=== PATIENT | male | born 1990 | race Two or more races ===

== ENCOUNTER 2017-11-23 10:47 | Emergency (ER) | payer SELFPAY ==
[2017-11-23 10:53] VITALS: BP 135/84; PULSE 85; RESP 18; TEMP 98.1; BMI 23.8
--- NOTE | 2017-11-23 11:00 | ED PDOC ---
Upper Extremity Pain/Injury Time Seen by Provider: 11/23/17 10:54 History Per: Patient Onset/Duration Of Symptoms: Days (3) Current Symptoms Are (Timing): Intermittent Episodes Quality: Burning Severity: Mild Additional Complaint(s): Right shoulder pain x 3 days. Burning type pain. Worse when sleeping. No injury. Denies weakness or parasthesias. Past Medical History Vital Signs: Last Vital Signs Temp 98.1 F 11/23/17 10:52 Pulse 85 11/23/17 10:52 Resp 18 11/23/17 10:52 BP 135/84 11/23/17 10:52 Pulse Ox 98 11/23/17 10:52 - Medical History PMH: No Chronic Diseases - Family History Family History: States: Unknown Family Hx - Home Medications Home Medications: Ambulatory Orders Medication Instructions Recorded Naproxen [Naprosyn] 500 mg PO Q12H #20 tab 11/23/17 - Allergies Allergies/Adverse Reactions: Allergies Allergy/AdvReac Type Severity Reaction Status Date / Time Unobtainable Allergy Verified 11/23/17 10:58 Review of Systems Musculoskeletal: Positive for: Shoulder Pain Neurological: Negative for: Weakness, Numbness Physical Exam - Physical Exam Appears: Positive for: Non-toxic, No Acute Distress Skin: Positive for: Normal Color, Warm, DRY Extremity: Positive for: Normal ROM, Tenderness (anterior shoulder). Negative for: Deformity, Swelling Neurologic/Psych: Positive for: Alert, Oriented. Negative for: Motor/Sensory Deficits - ECG O2 Sat by Pulse Oximetry: 98 Disposition - Clinical Impression Clinical Impression: Shoulder pain - Patient ED Disposition Is Patient to be Admitted: No Counseled Patient/Family Regarding: Studies Performed, Diagnosis, Need For Followup, Rx Given - Disposition Referrals: [facility] [Outside] Disposition: Routine/Home Disposition Time: 11:12 Condition: FAIR Prescriptions: Naproxen [Naprosyn] 500 mg PO Q12H #20 tab Instructions: Shoulder Sprain
[2017-11-23 11:25] VITALS: O2SAT 100
--- NOTE | 2017-11-23 11:39 | RAD ---
Date of service: 11/23/2017 PROCEDURE: Radiographs of the Right Shoulder HISTORY: pain COMPARISON: No prior. FINDINGS: BONES: No acute fracture or destructive bony lesion identified. JOINTS: Normal. Glenohumeral and acromioclavicular joints preserved. No osteoarthritis. SOFT TISSUES: Normal. OTHER FINDINGS: None. IMPRESSION: Normal radiographs of the right shoulder.
== END 2017-11-23 12:00 | disposition home or self-care (01) ==
LOC: H.ER 10:47
DX: M25.511 Pain in right shoulder (principal)

== ENCOUNTER 2018-02-12 14:39 | Emergency (ER) | payer OTHER ==
[2018-02-12 14:39] VITALS: BMI 23.8
[2018-02-12 15:08] VITALS: BP 143/75; PULSE 92; RESP 18; TEMP 98.1; O2SAT 100
[2018-02-12] MEDS ORDERED: Tdap Vaccine 0.5 ml Vial (10-64 yrs) IM ONE ×2 (15:17→15:34)
[2018-02-12] MEDS ORDERED: Amoxicillin-Clav 875-125 mg Tab PO STA (15:17)
--- NOTE | 2018-02-12 15:22 | ED PDOC ---
HPI: Skin/Bite Injury Time Seen by Provider: 02/12/18 15:09 Chief Complaint (Nursing): Bite Chief Complaint (Provider): Bite History Per: Patient History/Exam Limitations: no limitations Onset/Duration Of Symptoms: Days (2x) Current Symptoms Are (Timing): Still Present Location Of Injury: Right: Hand Quality Of Symptoms: Painful Severity: Moderate Additional Complaint(s): 27 year old male with no pertinent past medical history presents to the ED for an evaluation of a cat bite that occurred last night. Patient states that his grandmother's cat bit him. Patient states that his grandmother has been taking care of the cat for 9-10x months, but the the cat has not been vaccinated, and goes in and out of the house. Patient contacted his mother while in ED, mother states that the cat is still in the house. Patient complaints of pain and swelling to right hand. Tetanus is not up to date. PMD: None provided. - Animal Bite Description Of The Animal: Family Pet (grandmother's cat) Animal's Immunization Status: Other (not immunized) Animal Control Notified: Yes Past Medical History Reviewed: Historical Data, Nursing Documentation, Vital Signs Vital Signs: Last Vital Signs Temp 98.1 F 02/12/18 15:06 Pulse 92 H 02/12/18 15:06 Resp 18 02/12/18 15:06 BP 143/75 02/12/18 15:06 Pulse Ox 100 02/12/18 15:06 JOAQUINA report viewed?: Yes - Medical History PMH: Asthma - Surgical History Surgical History: No Surg Hx - Family History Family History: States: No Known Family Hx - Social History Alcohol: None Drugs: Denies - Home Medications Home Medications: Ambulatory Orders Medication Instructions Recorded Naproxen [Naprosyn] 500 mg PO Q12H #20 tab 11/23/17 Amoxicillin/Clavulanate [Augmentin 1 tab PO BID #19 tab 02/12/18 875 MG-125 MG] - Allergies Allergies/Adverse Reactions: Allergies Allergy/AdvReac Type Severity Reaction Status Date / Time No Known Allergies Allergy Verified 02/12/18 15:08 Review of Systems ROS Statement: Except As Marked, All Systems Reviewed And Found Negative Musculoskeletal: Positive for: Hand Pain (pain and swelling to right hand) Physical Exam - Reviewed Nursing Documentation Reviewed: Yes Vital Signs Reviewed: Yes - Physical Exam Appears: Positive for: Well, Non-toxic, No Acute Distress Head Exam: Positive for: ATRAUMATIC, NORMOCEPHALIC Pulses-Radial (L): 2+ Pulses-Radial (R): 2+ Extremity: Positive for: Normal ROM (Patient is able to actively move all digits of the right hand.), Swelling (minimal swelling to dorsum of the right hand, with superficial puncture wounds, and to the thenar surface of right hand. (-) active bleeding, (-) lacerations, (-) erythema, (-) discharge.) Neurologic/Psych: Positive for: Alert, Oriented (3x) - ECG O2 Sat by Pulse Oximetry: 100 (RA) Pulse Ox Interpretation: Normal - Radiology X-Ray: Interpreted by Me (R Hand x-ray) X-Ray Interpretation: No Acute Disease - Progress ED Course And Treament: Wound irrigated heavily with NS. DSD applied. Medical Decision Making Medical Decision Makin:09 Initial impression: 27 year old male with a cat bite. Initial plan: -- XRay hand right 3 views -- adacel (10-64 yrs) 0.5 ml IM -- augmentin 875 mg - 125 mg tab 1 tab PO -- reevaluation Patient advised to call mother to make sure that the cat does not leave the h ouse. Patient gets in touch with his mother who states that the cat is inside the house. Pt. told mother to keep cat inside the house as animal control will be informed. Advised to return to ED immediately if redness or discharge develops or swelling worsens. Given wound care instructions. Verbalized understanding of correct care. Scribe Attestation: Documented by Suellen Mendoza, acting as a scribe for Chele Da Silva Provider Scribe Attestation: All medical record entries made by the Scribe were at my direction and personally dictated by me. I have reviewed the chart and agree that the record accurately reflects my personal performance of the history, physical exam, medical decision making, and the department course for this patient. I have also personally directed, reviewed, and agree with the discharge instructions and disposition. Disposition - Clinical Impression Clinical Impression: Cat bite - Patient ED Disposition Is Patient to be Admitted: No - Disposition Referrals: [facility] [Outside] Disposition: Routine/Home Disposition Time: 15:41 Condition: STABLE Additional Instructions: FOLLOW UP WITH ED IN 48 HOURS FOR WOUND CHECK RETURN TO ED IMMEDIATELY IF SYMPTOMS WORSEN TERESA ESTRADA, thank you for letting us take care of you today. Your provider was Burke Shaw MD and you were treated for CAT BITE. The emergency medical care you received today was directed at your acute symptoms. If you were prescribed any medication, please fill it and take as directed. It may take several days for your symptoms to resolve. Return to the Emergency Department if your symptoms worsen, do not improve, or if you have any other problems. Please contact your doctor or call one of the physicians/clinics you have been referred to that are listed on the Patient Visit Information form that is included in your discharge packet. Bring any paperwork you were given at discharge with you along with any medications you are taking to your follow up visit. Our treatment cannot replace ongoing medical care by a primary care provider outside of the emergency department. Thank you for allowing the [facility] team to be part of your care today. If you had an X-Ray or CT scan: A Radiologist will review the ED reading if any change in treatment is needed we will contact you. If you had a blood, urine, or wound culture: It will take several days for the results, if any change in treatment is needed we will contact you. If you had an STI test: It will take 48 hours for the results. Please call after 1 week if you have not heard back. Prescriptions: Amoxicillin/Clavulanate [Augmentin 875 MG-125 MG] 1 tab PO BID #19 tab Instructions: Animal Bites (DC) Forms: [email or web address] (Lao), [facility] ED School/Work Excuse
[2018-02-12] MEDS ORDERED: Amoxicillin-Clav 875-125 mg Tab PO ONE (15:33)
--- NOTE | 2018-02-12 16:34 | RAD ---
PROCEDURE: Right Hand Radiographs. HISTORY: trauma COMPARISON: None. FINDINGS: BONES: No acute fracture or destructive bony lesion identified. JOINTS: Normal. No osteoarthritic changes. SOFT TISSUES: Normal. OTHER FINDINGS: None. IMPRESSION: Unremarkable right hand radiographs.
[2018-02-12] MEDS ORDERED: Albuterol-Ipratrop 3 mg / 0.5 (3 ml) UD ONE (18:50)
== END 2018-02-12 16:10 | disposition home or self-care (01) ==
LOC: H.ER 14:39
DX: S61.451A Open bite of right hand, initial encounter (principal); W55.01XA Bitten by cat, initial encounter; J45.909 Unspecified asthma, uncomplicated; Z23 Encounter for immunization

== ENCOUNTER 2018-03-29 09:55 | Emergency (ER) | payer OTHER ==
[2018-03-29 10:17] VITALS: BMI 23.5
[2018-03-29 10:21] VITALS: RESP 20; TEMP 97.4
[2018-03-29 10:23] VITALS: O2SAT 98
--- NOTE | 2018-03-29 10:43 | ED PDOC ---
Upper Extremity Pain/Injury Time Seen by Provider: 03/29/18 10:33 Chief Complaint (Nursing): Upper Extremity Problem/Injury Chief Complaint (Provider): Right Shoulder Pain History Per: Patient History/Exam Limitations: no limitations Onset/Duration Of Symptoms: Days (>30 days), Persistent, Worse Since (in the last few days) Current Symptoms Are (Timing): Still Present Quality: Burning, Aching Severity: Moderate Exacerbating Factor(s): Strenuous Use Of Affected Area, Movement (Pt presents to the ED for the second time in two months complaining of increasingly painful right shoulder; pt works in a strenuous activity in [employer] and has provided no rest to the injured and painful shoulder. Pt denies other medical problems, trauma, injury or the like) Past Medical History Reviewed: Historical Data, Nursing Documentation, Vital Signs Vital Signs: Last Vital Signs Temp 97.4 F L 03/29/18 10:21 Pulse 98 H 03/29/18 10:21 Resp 20 03/29/18 10:21 BP 129/78 03/29/18 10:21 Pulse Ox 98 03/29/18 10:21 - Medical History PMH: Asthma - Family History Family History: States: Unknown Family Hx - Home Medications Home Medications: Ambulatory Orders Medication Instructions Recorded Naproxen [Naprosyn] 500 mg PO Q12H #20 tab 11/23/17 Amoxicillin/Clavulanate [Augmentin 1 tab PO BID #19 tab 02/12/18 875 MG-125 MG] Diclofenac Potassium 50 mg PO BID #20 tablet 03/29/18 Methylprednisolone [Medrol Dose 4 mg PO ASDIR #21 mg 03/29/18 Pack (21 tabs)] - Allergies Allergies/Adverse Reactions: Allergies Allergy/AdvReac Type Severity Reaction Status Date / Time No Known Allergies Allergy Verified 02/12/18 15:08 Review of Systems ROS Statement: Except As Marked, All Systems Reviewed And Found Negative Musculoskeletal: Positive for: Shoulder Pain Physical Exam - Reviewed Nursing Documentation Reviewed: Yes Vital Signs Reviewed: Yes - Physical Exam Appears: Positive for: Well, Non-toxic, No Acute Distress. Negative for: Uncomfortable Head Exam: Positive for: NORMAL INSPECTION Skin: Positive for: Normal Color, Warm, Dry. Negative for: Diaphoresis, Pallor, Rash Neck: Positive for: Normal, Painless ROM, Supple. Negative for: Decreased ROM Cardiovascular/Chest: Positive for: Regular Rate, Rhythm Respiratory: Positive for: Normal Breath Sounds. Negative for: Accessory Muscle Use, Crackles, Rales, Rhonchi, Stridor, Wheezing Pulses-Carotid (L): 2+ Pulses-Carotid (R): 2+ Pulses-Radial (L): 2+ Pulses-Radial (R): 2+ Extremity: Positive for: Normal ROM (There is normal active ROM to the right shoulder; there is (-) hawking, scarf, empty can test as well as (-) shoulder impingement maneuvers), Tenderness (There is tenderness to the anterior right shoulder, lateral to the deltoid attachment), Capillary Refill (<2seconds bilaterally). Negative for: Deformity, Swelling DTR - Bicep (R): 2+ DTR - Bicep (L): 2+ DTR - Tricep (R): 2+ DTR - Tricep (L): 2+ - ECG O2 Sat by Pulse Oximetry: 98 Medical Decision Making Medical Decision Making: I- R/O separation vs tendonosis P- XR right shoulder toradol, dexameth and apap Wet read of right shoulder xray reveals no changes since previous read; there is no acute issues, no evidence of calcific tendonosis, dislocation or separation R- pt will be rx diclofenac; referrred to ortho; lsing and rest Disposition - Clinical Impression Clinical Impression: Nontraumatic shoulder pain, Shoulder pain - Patient ED Disposition Is Patient to be Admitted: No Doctor Will See Patient In The: Office Counseled Patient/Family Regarding: Diagnosis, Need For Followup, Rx Given - Disposition Referrals: [facility] [Outside] Boubacar Altman III, MD [Staff Provider] - Disposition: Routine/Home Disposition Time: 13:21 Condition: STABLE Prescriptions: Diclofenac Potassium 50 mg PO BID #20 tablet Methylprednisolone [Medrol Dose Pack (21 tabs)] 4 mg PO ASDIR #21 mg Instructions: Rotator Cuff Injury, Tendonitis Forms: [employer] (Maori)
[2018-03-29 13:43] VITALS: BP 125/72; PULSE 85
--- NOTE | 2018-03-29 14:09 | RAD ---
Date of service: 03/29/2018 PROCEDURE: Radiographs of the Right Shoulder HISTORY: r/o calc tendonosis; progressive R shoulder pain COMPARISON: 11/23/2017 FINDINGS: BONES: Normal. No fracture. JOINTS: Normal. Glenohumeral and acromioclavicular joints preserved. No osteoarthritis. SOFT TISSUES: Normal. OTHER FINDINGS: None. IMPRESSION: Normal radiographs of the right shoulder.No significant interval change compared to the prior examination(s).
== END 2018-03-29 13:23 | disposition home or self-care (01) ==
LOC: H.ER 09:55
DX: M25.511 Pain in right shoulder (principal); J45.909 Unspecified asthma, uncomplicated
CPT/HCPCS: 73030; 96372; 99284; J1100; J1885

== ENCOUNTER 2018-07-02 20:21 | Emergency (ER) | payer OTHER, BC ==
[2018-07-02 20:22] VITALS: BMI 22.8
[2018-07-02 20:28] VITALS: BP 115/69; PULSE 82; RESP 16; TEMP 98.2; O2SAT 100
[2018-07-02] MEDS ORDERED: Silver Sulfadiazine 1% CREAM (50 gm) ONE (21:23)
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
[2018-07-02] MEDS ORDERED: Silver Sulfadiazine 1% Cream (20 gm) TOP STA (22:02)
[2018-07-02] MEDS ORDERED: Silver Sulfadiazine 1% CREAM (50 gm) TOP STA (22:04)
== END 2018-07-02 22:04 | disposition home or self-care (01) ==
LOC: H.ER 20:21
DX: T24.1 Burn of first degree of lower limb, except ankle and foot (principal); Y99.0 Civilian activity done for income or pay